=== PATIENT | female | born 1965 | race American Indian/Alaskan Native ===

== ENCOUNTER 2018-10-16 06:03 | Day surgery (SDC) | payer MEDICAID ==
[2018-10-16] MEDS ORDERED: NACL 0.9% 1000 ML 1,000 ML IV SCH (07:00)
[2018-10-16] MEDS ORDERED: WATER FOR IRRIG STERILE IR ONE (07:30)
[2018-10-16] MEDS ORDERED: DIPRIVAN 10 MG/ML IV ONE (07:41)
[2018-10-16] MEDS ORDERED: VERSED ONE (07:41)
[2018-10-16] MEDS ORDERED: XYLOCAINE 1% 20 mL ONE (07:41)
--- NOTE | 2018-10-16 08:01 | Anesthesia Consultation ---
Anesthesia Consult and Med Hx Date of service: 10/16/18 - Airway Anesthetic Teeth Evaluation: Poor ROM Head & Neck: Adequate Mental/Hyoid Distance: Adequate Mallampati Class: Class II Intubation Access Assessment: Probably Good - Pre-Operative Health Status ASA Pre-Surgery Classification: ASA3 Proposed Anesthetic Plan: MAC - Cardiovascular System Hx Hypertension: Yes (HX BEFORE BYPASS SURGERY) - Gastrointestinal Hx Gastroesophageal Reflux Disease: Yes - Other Systems Hx Obesity: Yes
--- NOTE | 2018-10-16 08:02 | Anesthesia Day of Surgery ---
Anesthesia Day of Surgery - Day of Surgery Patient Examined: Yes Patient H&P Reviewed: Yes Patient is NPO: Yes
[2018-10-16 08:46] VITALS: BP 148/83
--- NOTE | 2018-10-16 09:17 | Operative Report ---
SURGEON: Napoleon Shultz MD [employer] MACHINE OPERATOR: Nilton Pascual M.D. PREOPERATIVE DIAGNOSES: 1. Dyspepsia. 2. Failure of gastrointestinal anastomosis. 3. Status post laparoscopic Amie-en-Y gastric bypass. POSTOPERATIVE DIAGNOSES: 1. Dyspepsia. 2. Failure of gastrointestinal anastomosis. 3. Status post laparoscopic Amie-en-Y gastric bypass. PROCEDURE: Upper endoscopy. ANESTHESIA: MAC. COMPLICATIONS: None. SPECIMENS: None. BLEEDING: None. INDICATIONS: The patient is a 53-year-old female who underwent a laparoscopic gastric bypass in [address] Soria. She has started to develop dyspepsia and presents for an endoscopy for possible revisional surgery. She has also regained weight as well. The risks, complications and alternatives were explained to the patient. Informed consent was obtained. DESCRIPTION OF PROCEDURE: The patient was brought to the GI suite where she was placed in the left lateral decubitus position and underwent MAC anesthesia. A bite block was placed and a timeout was called. A standard adult gastroscope was inserted into the oropharynx, down the esophagus, into the stomach pouch. Upon entry and careful inspection, I could see no ulcers, no erosions, no sores. The Amie limb was examined and found to be normal. The anastomosis was approximately 20 mm in the gastric pouch was dilated at around 60 mL. There was also evidence of a gastroenteric reflux. With this, the air was suctioned out. The gastroscope was removed. The patient tolerated the procedure well with no immediate complications and was transferred to the PACU in stable condition. FINDINGS: 1. Gastroenteric reflux. 2. Pouch 60 mL. 3. Anastomosis 20 mm. NOTE: This patient is status post Amie-en-Y gastric bypass. The patient is being seen and evaluated for dyspepsia and reflux diagnosis unrelieved by medical management. EGD was done to evaluate the anastomosis and pouch size from prior surgery. Results of the EGD reveal a 60 mL pouch, 20 mm anastomosis, evidence of enteric gastric reflux. 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 The patient will need multiple visits with the dietitian who will decide when the patient is ready for surgery. Plan for followup in the office with the dietitian and completion of all items on the ROADMAP as well as final insurance approval and then to proceed with correction of the GJ anastomosis, possible gastric resection and possible biliopancreatic limb lengthening. JOB# [id number] COLETTE/JUSTIN CLEMENTS
== END 2018-10-16 06:04 | disposition home or self-care (01) ==
LOC: GIO 06:03
PROVIDERS: ATTEND Specialist
DX: K21.9 Gastro-esophageal reflux disease without esophagitis (principal); K30 Functional dyspepsia; I10 Essential (primary) hypertension; E66.9 Obesity, unspecified; Z68.33 Body mass index [BMI] 33.0-33.9, adult; Z79.899 Other long term (current) drug therapy; Z98.890 Other specified postprocedural states
CPT/HCPCS: 43235; J2250; J2704; J7030